=== PATIENT | male | born 1975 | race Caucasian/White ===

== ENCOUNTER 2016-06-15 15:41 | Emergency (ER) | payer OTHER | END 2016-06-15 23:05 | disposition home or self-care (01) | LOC: D.ER 15:41 | DX: T18.128A Food in esophagus causing other injury, initial encounter (principal); X58.XXXA Exposure to other specified factors, initial encounter; Y93.89 Activity, other specified; Y92.019 Unspecified place in single-family (private) house as the place of occurrence of the external cause; R13.19 Other dysphagia ==

== ENCOUNTER → 2017-05-31 13:04 | Outpatient (CLI) | payer MEDICAID ==
[~2017-05-31 13:04] MED LIST: ACETAMINOPHEN500 M1 PO; ALDACTONE25 MG PO; COREG 3.1253.125 MG PO; CYMBALTA30 MG PO; HYDROCODONE-APA1 TAB PO; MOBIC7.5 MG PO; NEURONTIN 300300 MG PO; REMERON30 MG PO; RESTASIS EYE DR30 EA EACH EYE; ZYRTEC10 MG PO
[2017-07-06 09:31] VITALS: BMI 25.3
== END | disposition home or self-care (01) ==
LOC: D.MRI 13:04
DX: M25.562 Pain in left knee (principal); M25.561 Pain in right knee

== ENCOUNTER 2017-07-06 08:24 | Day surgery (SDC) | payer MEDICAID ==
[2017-07-05 16:22] LABS: HEMATOCRIT 43.6 % (42.0-54.0); HEMOGLOBIN 15.4 g/dL (13.5-17.5); MCH 33.4 pg (26.0-34.0); MCHC 35.3 g/dL (31.0-37.0); MCV 94.6 fL (80.0-100.0); MEAN PLATELET VOLUME 10.9 fL (7.4-10.4); RBC 4.61 10x6/uL (4.20-6.10); WBC 6.6 10x3/uL (4.8-10.8)
[~2017-07-06] VITALS: Ht 160 cm; Wt 64.9 kg
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
[~2017-07-06 08:24] MED LIST changes: -HYDROCODONE-APA1 TAB PO
[2017-07-06 09:31] VITALS: BP 119/65; Ht 160 cm; Wt 64.9 kg
[2017-07-06] MEDS ORDERED: HYDROCODONE-APA1 TAB PO (11:15)
== END 2017-07-06 13:15 | disposition home or self-care (01) ==
LOC: D.OPS 08:24 → D.PAN 14:30
PROVIDERS: Anesthesiology
DX: M25.562 Pain in left knee (principal); Z01.812 Encounter for preprocedural laboratory examination

== ENCOUNTER 2017-07-23 12:35 | Emergency (ER) | payer MEDICAID ==
[2017-07-06 09:31] VITALS: BMI 25.3
[~2017-07-23 12:35] MED LIST changes: +HYDROCODONE-APA1 TAB PO
[2017-07-23 13:45] LABS: BASOPHILS 0.2 % (0-2); EOSINOPHILS 3.5 % (0-7); HEMATOCRIT 43.9 % (42.0-54.0); HEMOGLOBIN 15.7 g/dL (13.5-17.5); IMMATURE GRANULOCYTES 0.2 % (0-5); LYMPHOCYTES 9.5 % (15-50); MCH 33.1 pg (26.0-34.0); MCHC 35.8 g/dL (31.0-37.0); MCV 92.4 fL (80.0-100.0); MEAN PLATELET VOLUME 10.9 fL (7.4-10.4); NEUTROPHILS 78.6 % (40-80); PLATELET COUNT 199 10x3/uL (130-400); RBC 4.75 10x6/uL (4.20-6.10); RDW 12.9 % (11.5-14.5); WBC 11.5 10x3/uL (4.8-10.8)
[2017-07-23 14:04] LABS: ALBUMIN 3.9 g/dL (3.4-5.0); ANION GAP 10.7 mmol/L (8-16); BILIRUBIN - TOTAL 0.34 mg/dL (0.2-1.3); CALCIUM 9.2 mg/dL (8.5-10.1); CARBON DIOXIDE 29.1 mmol/L (21.0-32.0); CREATININE - SERUM 1.4 mg/dL (0.6-1.3); POTASSIUM - SERUM 3.8 mmol/L (3.5-5.1); PROTEIN - SERUM 7.5 g/dL (6.4-8.2)
== END 2017-07-23 14:45 | disposition home or self-care (01) ==
LOC: D.ER 12:35
PROVIDERS: Emergency Medicine
DX: K52.9 Noninfective gastroenteritis and colitis, unspecified (principal)